=== PATIENT | female | born 1940 | race Caucasian/White ===

== ENCOUNTER 2024-02-11 09:30 | Emergency (ER) | payer OTHER ==
[2024-02-11 10:04] VITALS: BP 145/69; PULSE 80; RESP 18; TEMP 98.9; BMI 29.2
[2024-02-11] MEDS: SODIUM CHLORIDE 500 ML IV STA (10:30)
[2024-02-11] MEDS ORDERED: DEXAMETHASONE SOD PHOSPHATE 10 MG/1 ML VIAL ONE (10:32)
[2024-02-11] MEDS ORDERED: ACETAMINOPHEN INJECTION 100 ML IVPB ONE (10:32)
[2024-02-11] MEDS: DEXAMETHASONE 4 MG TABLET (FP) PO ONE (10:40)
[2024-02-11] MEDS: ACETAMINOPHEN 1000 MG/100 ML BAG IVPB ONE (10:45)
[2024-02-11] MEDS ORDERED: LORATADINE 10 MG TABLET ONE (11:07)
[2024-02-11 11:20] LABS: HEMOGLOBIN 12.9 G/dL (10.7-15.3); MCH 28.4 pg (25.7-33.7); MCHC 32.2 g/dl (32.0-36.0); MEAN CELL VOLUME 88.1 fl (80-96); PLATELET COUNT 194.5 10^3/uL (134-434); RBC 4.54 10^6/uL (3.60-5.2); RDW 14.5 % (11.6-15.6); WHITE BLOOD COUNT 8.5 10^3/uL (4.0-10.8)
[2024-02-11] MEDS: LORATADINE 10 MG TABLET PO ONE (11:22)
[2024-02-11 11:33] LABS: ALBUMIN 3.9 g/dl (3.4-5.0); ALK PHOS 51 U/L (45-117); ANION GAP 7 mmol/L (4-13); BILIRUBIN,TOTAL 0.6 mg/dl (0.2-1); CHLORIDE 105 mmol/L (98-107); CO2 27 mmol/L (21-32); GLUCOSE,RANDOM 96 mg/dl (74-106); POTASSIUM 4.7 mmol/L (3.5-5.1); SGOT/AST 15 U/L (15-37); SGPT/ALT 12 U/L (7-52); SODIUM 139 mmol/L (136-145); TOT PROT 6.6 g/dl (6.4-8.2)
[2024-02-11 12:27] LABS: EPITHELIAL CELLS 0-5 /hpf
[2024-02-11 12:29] LABS: PLATELET ESTIMATE ADEQUATE
== END 2024-02-11 13:51 | disposition home or self-care (01) ==
LOC: FER 09:30
PROC: 3E033NZ Introduction of Analgesics, Hypnotics, Sedatives into Peripheral Vein, Percutaneous Approach (ICD-10-PCS; principal; 2024-02-11)
PROC: 3E0337Z Introduction of Electrolytic and Water Balance Substance into Peripheral Vein, Percutaneous Approach (ICD-10-PCS; 2024-02-11)
DX: J02.0 Streptococcal pharyngitis (principal); R09.81 Nasal congestion; R68.2 Dry mouth, unspecified
CPT/HCPCS: 36415; 80053; 81003; 81015; 85027; 99284-25; J0131

== ENCOUNTER 2024-02-13 11:09 | Observation (INO) | payer OTHER ==
[2024-02-13 11:21] VITALS: BMI 28.3
[2024-02-13] MEDS ORDERED: METOCLOPRAMIDE HCL INJECTION 10 MG/2 ML VIAL ONE (12:08)
[2024-02-13] MEDS ORDERED: ACETAMINOPHEN INJECTION 100 ML IVPB ONE (12:08)
[2024-02-13] MEDS ORDERED: MECLIZINE HCL 25 MG TABLET (FP) ONE (12:08)
[2024-02-13] MEDS: MECLIZINE HCL 25 MG TABLET (FP) PO ONE (12:40)
[2024-02-13] MEDS: METOCLOPRAMIDE HCL INJECTION 10 MG/2 ML VIAL IVPUSH ONE (12:45)
[2024-02-13] MEDS: SODIUM CHLORIDE 1,000 ML IV ONE (12:50)
[2024-02-13] MEDS: ACETAMINOPHEN 1000 MG/100 ML BAG IVPB ONE (12:57)
[2024-02-13 13:02] LABS: HEMOGLOBIN 13.3 G/dL (10.7-15.3); MCH 29.2 pg (25.7-33.7); MCHC 33.2 g/dl (32.0-36.0); MEAN PLT VOLUME 10.5 fl (7.5-11.1); PLATELET COUNT 195.8 10^3/uL (134-434); RBC 4.55 10^6/uL (3.60-5.2); RDW 15.3 % (11.6-15.6); WHITE BLOOD COUNT 8.8 10^3/uL (4.0-10.8)
[2024-02-13 13:10] LABS: BILIRUBIN,TOTAL 0.4 mg/dl (0.2-1); CALCIUM 9.9 mg/dl (8.5-10.1); POTASSIUM 4.6 mmol/L (3.5-5.1); TOT PROT 6.7 g/dl (6.4-8.2)
[2024-02-13 13:12] LABS: PLATELET ESTIMATE ADEQUATE
[2024-02-13] MEDS ORDERED: ASPIRIN 81 MG CHEWABLE TABLETS ONE (14:41)
[2024-02-13] MEDS: ASPIRIN 81 MG CHEWABLE TABLETS PO ONE (14:45)
[2024-02-13 15:36] LABS: CHOLESTEROL 155 mg/dL (50-200); HDL CHOLESTEROL 75 mg/dL (40-60); LDL CHOLESTEROL (ONLY DFH) 63 mg/dL (5-100)
[2024-02-13] MEDS: ATORVASTATIN CA 40 MG TABLET (FP) PO SCH (22:19)
[2024-02-14 09:03] LABS: ALBUMIN 3.8 g/dl (3.4-5.0); BILIRUBIN,TOTAL 0.3 mg/dl (0.2-1); CALCIUM 9.6 mg/dl (8.5-10.1); MAGNESIUM 2.1 mg/dL (1.8-2.4); PHOSPHOROUS 4.2 (2.5-4.9); TOT PROT 6.3 g/dl (6.4-8.2)
[2024-02-14] MEDS ORDERED: MECLIZINE HCL 25 MG TABLET (FP) PO PRN (10:05)
[2024-02-14 10:21] LABS: BASO % 0.4 % (0-2.0); EOS % 3.7 % (0-4.5); HEMATOCRIT 39.3 % (32.4-45.2); HEMOGLOBIN 12.8 GM/dL (10.7-15.3); LYMPH % 33.8 % (8-40); MCH 28.9 pg (25.7-33.7); MCHC 32.6 g/dl (32.0-36.0); MEAN CELL VOLUME 88.6 fl (80-96); MEAN PLT VOLUME 10.3 fl (7.5-11.1); MONO % 7.9 % (3.8-10.2); NEUT % 54.2 % (42.8-82.8); PLATELET COUNT 229 10^3/uL (134-434); RBC 4.44 M/mm3 (3.60-5.2); WHITE BLOOD COUNT 8.3 K/mm3 (4.0-10.0)
[2024-02-14 10:39] LABS: N-TERMINAL BNP 819.9 pg/ml (5-450)
[2024-02-14] MEDS: CEFTRIAXONE 1 GM in DEXTROSE 5%-WATER - 50 ML IVPB SCH (10:46)
[2024-02-14] MEDS: ASPIRIN 81 MG CHEWABLE TABLETS PO SCH (10:47)
[2024-02-14] MEDS: LATANOPROST 0.005% OPHTH SOLN 2.5ML BOTTLE OU SCH (10:58)
[2024-02-14] MEDS: ACETAMINOPHEN 325 MG TABLET (FP) PO PRN (11:26)
[2024-02-14] MEDS: FUROSEMIDE 20 MG TABLET (FP) PO ONE (18:22)
[2024-02-15] MEDS: TETRAHYDROZOLINE HCL EYE DROPS OU SCH (05:16)
[2024-02-15 09:58] LABS: BILIRUBIN,TOTAL 0.5 mg/dl (0.2-1); CALCIUM 10.2 mg/dl (8.5-10.1); POTASSIUM 4.4 mmol/L (3.5-5.1); TOT PROT 6.7 g/dl (6.4-8.2)
[2024-02-15 11:08] LABS: BASO % 0.5 % (0-2.0); EOS % 3.8 % (0-4.5); HEMATOCRIT 39.9 % (32.4-45.2); HEMOGLOBIN 13.3 GM/dL (10.7-15.3); MCH 28.8 pg (25.7-33.7); MCHC 33.3 g/dl (32.0-36.0); MEAN CELL VOLUME 86.7 fl (80-96); MEAN PLT VOLUME 9.7 fl (7.5-11.1); MONO % 9.4 % (3.8-10.2); NEUT % 63.3 % (42.8-82.8); PLATELET COUNT 246 10^3/uL (134-434); RDW 13.8 % (11.6-15.6); WHITE BLOOD COUNT 8.7 K/mm3 (4.0-10.0)
[2024-02-15] MEDS: LEVOTHYROXINE NA 75 MCG TABLET (FP) PO SCH (19:42)
[2024-02-16] MEDS: LEVOTHYROXINE NA 75 MCG TABLET (FP) PO SCH (06:31)
[2024-02-16 08:56] LABS: ALBUMIN 3.7 g/dl (3.4-5.0); BILIRUBIN,TOTAL 0.4 mg/dl (0.2-1); CALCIUM 9.8 mg/dl (8.5-10.1); POTASSIUM 4.2 mmol/L (3.5-5.1); TOT PROT 6.2 g/dl (6.4-8.2)
[2024-02-16 09:46] VITALS: BP 134/62; PULSE 81; RESP 18; TEMP 99.4
[2024-02-16] MEDS: LORATADINE 10 MG TABLET PO SCH (11:24)
[2024-02-16] MEDS: FLUTICASONE PROP 0.05% 16 GM NASAL SPRAY NS SCH (11:24)
== END 2024-02-16 13:08 | disposition home or self-care (01) ==
LOC: FER 11:09 → FM/S 14:23
PROC: 3E033NZ Introduction of Analgesics, Hypnotics, Sedatives into Peripheral Vein, Percutaneous Approach (ICD-10-PCS; principal; 2024-02-13)
PROC: 3E03329 Introduction of Other Anti-infective into Peripheral Vein, Percutaneous Approach (ICD-10-PCS; 2024-02-13)
PROC: 3E033GC Introduction of Other Therapeutic Substance into Peripheral Vein, Percutaneous Approach (ICD-10-PCS; 2024-02-13)
PROC: 3E0337Z Introduction of Electrolytic and Water Balance Substance into Peripheral Vein, Percutaneous Approach (ICD-10-PCS; 2024-02-13)
DX: R79.89 Other specified abnormal findings of blood chemistry (principal); E03.9 Hypothyroidism, unspecified; H81.10 Benign paroxysmal vertigo, unspecified ear; E78.5 Hyperlipidemia, unspecified; I50.9 Heart failure, unspecified; Z88.0 Allergy status to penicillin
CPT/HCPCS: 0241U-QW; 36415; 71045-TC-FY; 80053; 80061; 83036; 83735; 83880; 84100; 84439; 84443; 84484; 85025; 85027; 93005; 96361; 96365; 96375; 97116-GP; 99285-25; G0378; J0131

== ENCOUNTER 2024-03-05 12:12 | Emergency (ER) | payer OTHER, MEDICARE ==
[2024-03-05 12:23] VITALS: BP 161/71; PULSE 73; RESP 18; TEMP 97.8; BMI 29.2
== END 2024-03-05 14:42 | disposition home or self-care (01) ==
LOC: FER 12:12
DX: M79.18 Myalgia, other site (principal); M54.9 Dorsalgia, unspecified
CPT/HCPCS: 72100-TC-FY; 99283-25